=== PATIENT | female | born 1960 | race Caucasian/White ===

== ENCOUNTER 2017-06-20 16:33 | Emergency (ER) | payer SELFPAY ==
[~2017-06-20] VITALS: Ht 152.4 cm; Wt 44.0 kg
[2017-06-20 16:43] VITALS: BP 147/77; PULSE 84; RESP 18; TEMP 98.6; O2SAT 99
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
[2017-06-20] MEDS ORDERED: KETOROLAC TROMETHAMINE 60 MG/2 ML (IM) VIAL IM ONE (17:15)
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
[2017-06-20] MEDS ORDERED: HYDR-3516 PO (18:28)
[2017-06-20 18:47] VITALS: BP 158/75
[2017-07-03] MEDS ORDERED: ADVITAB3 PO (14:19)
[2017-07-03] MEDS ORDERED: HYDR-3583 PO (14:19)
== END 2017-06-20 18:50 | disposition home or self-care (01) ==
LOC: PHED 16:33 → EDSEX 16:33 → PHED 18:50
DX: S82.101A Unspecified fracture of upper end of right tibia, initial encounter for closed fracture (principal); S90.31XA Contusion of right foot, initial encounter; V88.7XXA Person injured in collision between other specified motor vehicle, nontraffic, initial encounter
CPT/HCPCS: 73560; 73620; 99284; E0113; L1830

== ENCOUNTER 2017-07-07 06:22 | Inpatient (IN) | payer MEDICAID ==
[~2017-07-07] VITALS: Ht 152.4 cm; Wt 45.0 kg
[~2017-07-07 06:22] MED LIST: ADVITAB3 PO; HYDR-3583 PO
[2017-07-07] MEDS ORDERED: ACETAMINOPHEN 1000 MG/100 ML 100 ML IV ONE (06:25)
[2017-07-07] MEDS ORDERED: FAMOTIDINE 20 MG/2 ML VIAL ONE (07:12)
[2017-07-07] MEDS ORDERED: SODIUM CHLOR 0.9% 250 ML INJ 250 ML ONE (07:20)
[2017-07-07] MEDS ORDERED: VANCOMYCIN HCL 1000 MG VIAL ONE (07:20)
[2017-07-07] MEDS ORDERED: METOPROLOL TARTRATE 25 MG TAB PO PRN (07:30)
[2017-07-07] MEDS ORDERED: LACTATED RINGER'S 1000 ML IV PRN (07:30)
[2017-07-07] MEDS ORDERED: POVIDONE IODINE 5% (ANTISEPSIS KIT) 4 APPLICATIONS EACH NARE PRN (07:30)
[2017-07-07] MEDS ORDERED: CHLORHEXIDINE GLUCONATE 2 % 1 PACK (2 CLOTHS) TOPICAL PRN (07:30)
[2017-07-07] MEDS ORDERED: SODIUM CHLORID 0.9% 500 ML IV PRN (07:30)
[2017-07-07] MEDS ORDERED: ceFAZolin 2 GM PREMIX 50 ML IV SCH (07:45)
[2017-07-07] MEDS ORDERED: VANCOMYCIN 1000 MG/NS 250 ML (for <70 kg) IV SCH ×2 (07:45)
[2017-07-07] MEDS ORDERED: CHLORHEXIDINE GLUCONATE 4% SOLN 120 ML BTL TOPICAL SCH (07:45)
[2017-07-07] MEDS ORDERED: ceFAZolin INJ 1,000 MG VIAL IV ONE ×2 (09:00→12:00)
[2017-07-07] MEDS ORDERED: MORPHINE SULFATE 4 MG/ML INJ IV PUSH PRN (10:15)
[2017-07-07] MEDS ORDERED: ONDANSETRON HCL 4 MG/2 ML VIAL IVP PRN (10:15)
[2017-07-07] MEDS ORDERED: diphenhydrAMINE HCL 25 MG CAP PO PRN (10:15)
[2017-07-07] MEDS ORDERED: MISCELLANEOUS NURSING INFORMATION XX PRN (10:15)
[2017-07-07] MEDS ORDERED: NALOXONE HCL 0.4 MG/ML AMP IV PUSH PRN (10:15)
--- NOTE | 2017-07-07 10:21 | PD.OP ---
cc: Josh Yanes MD Operative Report Date of Surgery: Jul 07, 2017 Preoperative Diagnosis: Depressed right lateral tibial plateau fracture Postoperative Diagnosis: Procedure: Open reduction internal fixation right tibial plateau Surgeon: Josh Yanes Armhole Baster Jumpbasting(s): JAIME Sahu PA-C The surgical procedure was assisted by my physician malt specifications control assistant. My P.A. presence was necessary throughout this case for the manipulation and positioning of the surgical extremity. My P.A. was assisting me throughout the duration of this procedure. The skill set of a physician malt specifications control assistant was medically necessary to complete this procedure. During the surgical case the surgical garment assembly supervisor was working at the back table and the physician malt specifications control assistant was directly assisting me. Operation and Findings: Paula was seen and evaluated preoperatively. Patient sustained an injury resulting a right lateral tibial plateau fracture. Informed consent was obtained preoperatively after detailed discussion of the risks and benefits of surgery. Risk of surgery including bleeding, infection, nonunion, painful hardware, stiffness, loss of motion, arthritis, need for knee replacement, as well as medical complications including blood clots, stroke, heart attack, and were discussed. I also discussed the possibility of using allograft bone graft . Preoperatively the operative site was marked. Patient was brought to the operating room and placed on the operating room table. Intravenous sedation and general endotracheal anesthesia were administered. IV antibiotics were given and a time out procedure was preformed. The operative leg was prepped with alcohol followed by Hibiclens and draped in the usual sterile fashion. Procedure began with a 4-inch curvilinear incision over the anterolateral knee. Subcutaneous tissue was treated with Bovie. Iliotibial band was split in line with fibers. A sub-meniscal arthrotomy was created and the lateral articular surface was visualized. There was significant comminution and depression of the articular surface. A window was made in the metaphyseal region and bone tamps used to elevate the articular surface. Articular surface reduced into excellent alignment. K-wires were used for provisional fixation. At this point cancellous bone graft was packed under the articular surface using a bone tamp. The cortical fragments were now reduced. Fluoroscopy revealed excellent alignment of fracture. A Synthes proximal tibial plate was selected. The plate was provisionally held with K-wires. 3.5 cortical screws were used compress plate to bone distally, and a periarticular clamp was used to compress the medial and lateral tibial plateau fracture fragments together. Multiple locking screws were now placed proximally. Additional screws were placed in the shaft. K-wires were removed. Final fluoroscopy showed excellent alignment of fracture with well-placed hardware. The incision was thoroughly irrigated. Arthrotomy and iliotibial band closed with #1 Vicryl,. Subcutaneous tissues closed with 3-0 Vicryl and skin was closed with bruna. Sterile dressings were applied. The patient was transferred to recovery in stable condition. Josh Yanes MD Jul 07, 2017 10:21
[2017-07-07] MEDS ORDERED: HYDR-3366 PO (10:23)
[2017-07-07] MEDS ORDERED: DO NOT ADM ANY ANTICOAGULANT DRUGS PRN (10:36)
[2017-07-07] MEDS ORDERED: HYDROmorphone HCL PF 2 MG/ML VIAL ONE (10:43)
[2017-07-07] MEDS: LACTATED RINGER'S 1000 ML INJ 1,000 ML IV SCH ×2 (11:00→20:38)
[2017-07-07] MEDS ORDERED: *MEPERIDINE 25 MG INJ VIAL PERIprocedural Use ONLY ONE (11:01)
[2017-07-07] MEDS ORDERED: *LABETALOL HCL 100 MG/20 ML VIAL PERIprocedural Use ONLY ONE (11:01)
[2017-07-07] MEDS ORDERED: *ENALAPRILAT 1.25 MG/ML VIAL PERIprocedural Use ONLY ONE (11:11)
[2017-07-07] MEDS ORDERED: Post-op Orders (for Pharmacy) MISC XX ONE (11:15)
[2017-07-07] MEDS ORDERED: MIDAZOLAM HCL 2 MG/2 ML VIAL IV ONE (12:00)
[2017-07-07] MEDS ORDERED: ERGOCALCIFEROL (VIT D2) 50,000 UNIT CAP PO SCH (12:00)
[2017-07-07] MEDS ORDERED: DEXAMETHASONE SOD PHOS 4 MG/ML VIAL IV ONE (12:00)
[2017-07-07] MEDS ORDERED: LIDOCAINE HCL 1% PF 5 ML SYRINGE OTHER ONE (12:00)
[2017-07-07] MEDS ORDERED: PROPOFOL 200 MG/20 ML AMP IV ONE (12:00)
[2017-07-07] MEDS ORDERED: NALOXONE HCL 0.4 MG/ML AMP IV ONE (12:00)
[2017-07-07] MEDS ORDERED: MORPHINE SULFATE 4 MG/ML INJ IV ONE (12:00)
[2017-07-07] MEDS ORDERED: ONDANSETRON HCL 4 MG/2 ML VIAL IV PUSH ONE (12:00)
[2017-07-07] MEDS ORDERED: PHENYLEPH/NS 1000 MCG/10 ML SYR IV ONE (12:00)
[2017-07-07] MEDS ORDERED: LACTATED RINGER'S 1000 ML INJ 1,000 ML IV ONE (12:00)
[2017-07-07] MEDS ORDERED: ePHEDrine/NS 25 MG/5 ML SYR IV ONE (12:00)
--- NOTE | 2017-07-07 13:50 | RADRPT ---
EXAM DATE/TIME: 07/07/2017 10:01 [facility] COMPARISON: KNEE RIGHT LTD (1 OR 2 VWS), June 20, 2017, 17:35. INDICATIONS : ORIF right tibial plateau fracture. MEDICAL HISTORY : Unobtainable. SURGICAL HISTORY : Unobtainable. ENCOUNTER: Subsequent ACUITY: 3 weeks PAIN SCORE: Non-responsive. LOCATION: Right knee FINDINGS: Side plate with screws bridging plateau fracture. Anatomic alignment. CONCLUSION: Anatomic alignment. Jake Cowan MD FACR on July 07, 2017 at 13:47 Board Certified Radiologist. This report was verified electronically.
--- NOTE | 2017-07-07 14:28 | EKG ---
Date Performed: 07/07/2017 Time Performed: 07:11:34 PTAGE: 57 years EKG: Sinus rhythm POSSIBLE RIGHT ATRIAL ENLARGEMENT POSSIBLE LEFT ATRIAL ENLARGEMENT BORDERLINE RIGHT AXIS DEVIATION S EPTAL MYOCARDIAL INFARCTION , PROBABLY OLD ABNORMAL ECG NO PREVIOUS TRACING DOCTOR: Andreia Lopez Interpretating Date/Time 07/07/2017 14:24:49
[2017-07-07] MEDS: CALCIUM/VITAMIN D 250 MG/125 U TAB PO SCH ×2 (14:30→17:59)
[2017-07-07 16:00] VITALS: BP 152/86; PULSE 69; RESP 17; TEMP 95.3; O2SAT 100
[2017-07-07] MEDS: ACETAMINOPHEN/HYDROcodone 325 MG/7.5 MG TAB PO PRN ×2 (16:32→20:37)
[2017-07-07] MEDS: ceFAZolin 2 GM PREMIX 50 ML IV SCH (18:00)
[2017-07-07 20:00] VITALS: BP 166/87; PULSE 72; RESP 18; TEMP 97.9; O2SAT 99
[2017-07-07] MEDS: VANCOMYCIN INJ 1,000 MG in SODIUM CHLOR 0.9% 250 ML INJ 250 ML IV SCH (20:38)
[2017-07-07] MEDS: DOCUSATE SODIUM 50 MG/SENNA 8.6 MG TAB PO SCH (20:38)
[2017-07-08] VITALS (9 sets, daily range): BP systolic 120–167; BP diastolic 68–91; PULSE 73–97; RESP 17–19; TEMP 97.1–98.8; O2SAT 96–100
[2017-07-08] MEDS: ACETAMINOPHEN/HYDROcodone 325 MG/7.5 MG TAB PO PRN ×5 (01:41→19:39)
[2017-07-08] MEDS: ceFAZolin 2 GM PREMIX 50 ML IV SCH ×3 (01:42→18:00)
--- NOTE | 2017-07-08 07:04 | PD.ORT.PN ---
Subjective Subjective Remarks POD 1 s/p ORIF right tibial plateau fracture doing well. reports pain but controlled. not been out of bed yet Objective Vitals Vital Signs Date Time Temp Pulse Resp B/P (MAP) Pulse Ox O2 Delivery O2 Flow Rate FiO2 07/08/17 04:00 98.8 83 18 146/78 (100) 100 07/08/17 01:38 99 Nasal Cannula 2.00 07/08/17 00:00 97.7 82 18 167/91 (116) 100 07/07/17 20:36 99 Nasal Cannula 2.00 07/07/17 20:00 97.9 72 18 166/87 (113) 99 07/07/17 16:00 95.3 69 17 152/86 (108) 100 07/07/17 13:00 97.8 73 14 155/74 (101) 100 Nasal Cannula 2 07/07/17 12:30 66 14 161/80 (107) 100 Nasal Cannula 2 07/07/17 12:15 67 14 164/80 (108) 100 Nasal Cannula 2 07/07/17 12:00 68 14 169/86 (113) 100 Nasal Cannula 2 07/07/17 11:45 74 14 173/90 (117) 100 Nasal Cannula 2 07/07/17 11:30 73 12 141/67 (91) 99 Nasal Cannula 2 07/07/17 11:20 71 8 90 Ambu Bag 100 07/07/17 11:15 70 14 167/81 (109) 99 Nasal Cannula 2 07/07/17 11:06 72 13 174/81 (112) 96 Nasal Cannula 2 07/07/17 11:00 86 18 196/95 (128) 98 Nasal Cannula 2 07/07/17 10:52 80 12 193/92 (125) 100 Nasal Cannula 2 07/07/17 10:46 79 12 179/85 (116) 100 Nasal Cannula 2 07/07/17 10:45 83 15 187/89 (121) 100 Nasal Cannula 2 07/07/17 10:38 98.2 86 22 182/86 (118) 100 Nasal Cannula 2 I/O 07/07/17 07/07/17 07/07/17 07/08/17 07/08/17 07/08/17 07:00 15:00 23:00 07:00 15:00 23:00 Intake Total 1405 ml 170 ml 400 ml Output Total 50 ml 600 ml 800 ml Balance 1355 ml -430 ml -400 ml Intake Oral 5 ml 120 ml 400 ml IV Total 50 ml Other 1400 ml Output Urine Total 600 ml 800 ml Estimated Blood Loss 50 ml # Voids 0 2 # Bowel Movements 0 0 Objective Remarks RLE: dressings clean and dry. intact. NVI. +CKS Assessment & Plan Assessment and Plan 1) Right Tibial Plateau Fx s/p ORIF - POD 1 -NWB -knee brace at all times -PT for PROM 0-90 -no AROM, leg lifts, quad sets -daily dressing change POD 2 -if patient doing well with therapy, plan for home with [facility] tomorrow -DVT prophylaxis -f/u with [facility] or PA in 2 weeks Carl Mcclure/First Brinda QUINTERO Jul 08, 2017 07:04
[2017-07-08 07:05] LABS: HEMATOCRIT 35.3 % (35.0-46.0); REVIEW FLAG FINAL
[2017-07-08] MEDS ORDERED: WHEEMIS3 (07:06)
[2017-07-08] MEDS ORDERED: WALKER/ADULT/FO1 MIS (07:06)
[2017-07-08] MEDS ORDERED: XARE10TA PO (07:06)
--- NOTE | 2017-07-08 07:14 | HHI.FF ---
Face to Face Verification Diagnosis: (1) Tibial plateau fracture, right Physical Therapy Gait training Knee: Knee fracture, Protocol: Right, Non weight bearing Canvas Knee Splint: Remove only with PT Right LE Weight Bearing: Non WB, No Strengthening, No Quad Sets Right LE Range of Motion: Passive ROM (0-90deg) Nursing Dressing Changes: Daily dressing change, Moses wrap, 4x4s, Xeroform I have seen patient Paula Sanchez on 07/08/17. My clinical findings support the need for the requested home health care services because: Ltd mobility - disease progression I certify that my clinical findings support that this patient is homebound because: Post-op weakness Carl Mcclure/First Brinda QUINTERO Jul 08, 2017 07:14
[2017-07-08] MEDS: CHOLECALCIFEROL (VIT D3) 1000 UNIT TAB PO SCH (07:51)
[2017-07-08] MEDS: CALCIUM/VITAMIN D 250 MG/125 U TAB PO SCH ×3 (07:51→18:00)
[2017-07-08] MEDS: DOCUSATE SODIUM 50 MG/SENNA 8.6 MG TAB PO SCH (07:51)
[2017-07-08] MEDS: VANCOMYCIN INJ 1,000 MG in SODIUM CHLOR 0.9% 250 ML INJ 250 ML IV SCH (08:02)
[2017-07-08] MEDS: ENOXAPARIN SODIUM 30 MG/0.3 ML SYRINGE SQ SCH ×2 (10:00→10:28)
[2017-07-09] VITALS: BP 141/76; PULSE 72; RESP 18; TEMP 97.4; O2SAT 97
[2017-07-09] MEDS: DOCUSATE SODIUM 50 MG/SENNA 8.6 MG TAB PO SCH ×2 (00:15→10:42)
[2017-07-09] MEDS: VANCOMYCIN INJ 1,000 MG in SODIUM CHLOR 0.9% 250 ML INJ 250 ML IV SCH (00:15)
[2017-07-09] MEDS: ACETAMINOPHEN/HYDROcodone 325 MG/7.5 MG TAB PO PRN ×2 (00:16→10:46)
[2017-07-09] MEDS: ceFAZolin 2 GM PREMIX 50 ML IV SCH ×2 (02:31→10:43)
[2017-07-09 04:00] VITALS: BP 136/79; PULSE 77; RESP 18; TEMP 98; O2SAT 96
--- NOTE | 2017-07-09 07:25 | HHI.DS ---
Discharge Summary Admission Date Jul 07, 2017 at 12:17 Discharge Date: Jul 09, 2017 Admitting Diagnosis Right tibial plateau fracture Diagnosis: (1) Tibial plateau fracture, right Diagnosis: Principal ICD Codes: S82.141A - Displaced bicondylar fracture of right tibia, initial encounter for closed fracture Procedures ORIF of right tibial plateau CBC/BMP: 07/08/17 0638 Significant Findings Laboratory Tests Test 07/08/17 06:38 PE at Discharge RLE: dressings clean and dry. intact. NVI. +CKS Hospital Course Patient admitted from outpatient basis after suffering a right tibial plateau fracture. She originally presented to [facility] where she was discharged home and told and follow-up in the office. She followed up in the office in outpatient basis and was admitted for the procedure. She tolerated procedure well. She was admitted to [address] [place] [id number]. On possibly 1 she had moderate pain her right knee. However, she was ambulatory with a walker. A postoperative day 2 she was hemodynamically stable, pain was well-controlled, she was ambulatory with a walker, and she was fit for discharge home with home healthcare. She will remain nonweightbearing on the right leg. She'll avoid any active leglifts or quad sets. She will work on passive motion from 0-90. She will keep her incision clean and dry. She will undergo daily dressing changes. She'll follow up with Dr. Yanes or his PA in 2 weeks Pt Condition on Discharge: Fair Discharge Disposition: Disch w/ Home Health Serv Discharge Instructions Diet Instructions: As Tolerated, No Restrictions Activities You Can Perform: Non Weight Bearing Follow up Referrals: Orthopedics - 2 Weeks @ [facility] with Josh Yanes MD New Medications: Hydrocodone-Acetaminophen ([place]) 10-325 Mg Tab 1 TAB PO Q4H PRN for PAIN, #60 TAB 0 Refills Rivaroxaban (Xarelto) 10 Mg Tab 10 MG PO DAILY for Blood Clot Prevention for 14 Days, #14 TAB 0 Refills Walker/Adult/Folding (Walker/Adult/Folding) 1 Mis Mis EA .ROUTE DIRECTED, #1 0 Refills Wheelchair Elevated Leg (Wheelchair Elevated Leg) 1 Mis Mis EA .ROUTE DIRECTED, #1 0 Refills Discontinued Medications: Hydrocodone/Acetaminophen (Hydrocodone-Acetamin 10-325 mg) 10 Mg-325 Mg Tablet 10 TAB PO DIRECTED for Pain Management Carl Mcclure/Commissary Assistant LEON Jul 09, 2017 07:25
[2017-07-09 08:00] VITALS: BP 125/84; PULSE 73; RESP 18; TEMP 98.9; O2SAT 98
[2017-07-09] MEDS: ENOXAPARIN SODIUM 30 MG/0.3 ML SYRINGE SQ SCH (10:42)
[2017-07-09] MEDS: CALCIUM/VITAMIN D 250 MG/125 U TAB PO SCH (10:43)
[2017-07-09] MEDS: CHOLECALCIFEROL (VIT D3) 1000 UNIT TAB PO SCH (10:43)
[2017-07-09] MEDS ORDERED: BACITRACIN TOP OINT 15 GM TUBE TOPICAL SCH ×2 (14:00→15:00)
== END 2017-07-09 12:30 | disposition home health service (06) | DRG 494 ==
LOC: HSDC 06:22 → EDSTATUS 08:30 → HSDI 12:17 → N06B 13:53
PROVIDERS: ADMIT Orthopaedic Surgery Orthopaedic Trauma; ATTEND Orthopaedic Surgery Orthopaedic Trauma
PROC: 0QSG04Z Reposition Right Tibia with Internal Fixation Device, Open Approach (ICD-10-PCS; principal; 2017-07-07 08:50)
DX: S82.141A Displaced bicondylar fracture of right tibia, initial encounter for closed fracture (principal); F12.90 Cannabis use, unspecified, uncomplicated; X58.XXXA Exposure to other specified factors, initial encounter
CPT/HCPCS: 73560; 76000; 85014; 85018; 93005; 94150; C1713; J0131; J0690; J1100; J1170; J1650; J2175; J2250; J2270; J2310; J2370; J2405; J3010; J3370; J7050; J7120